=== PATIENT | female | born 1980 | race Caucasian/White ===

== ENCOUNTER 2018-11-19 22:56 | Inpatient (IN) | payer BC ==
[~2018-11-19] VITALS: Ht 152.4 cm; Wt 74.4 kg
[2018-11-19] MEDS ORDERED: TERBUTALINE SULFATE 1 MG/ML VIAL SUBCUT ONE (23:30)
[2018-11-19] MEDS ORDERED: DINOPROSTONE 10 MG SUPP VG ONE (23:30)
[2018-11-19] MEDS ORDERED: NALBUPHINE HCL 10 MG/ML AMP IM PRN (23:30)
[2018-11-20] MEDS ORDERED: ACETAMINOPHEN 325 MG TABLET PO PRN (00:15)
[2018-11-20 00:53] LABS: BASOPHILS # (AUTO) 0.1 K/uL (0.0-0.2); BASOPHILS % (AUTO) 1.1 % (0.0-2.0); EOSINOPHILS # (AUTO) 0.2 K/uL (0.0-0.4); EOSINOPHILS % (AUTO) 2.6 % (0.0-4.0); HEMATOCRIT 33.4 % (36-48); HEMOGLOBIN 11.4 g/dL (12.0-16.0); LYMPHOCYTES # (AUTO) 2.1 K/uL (1.0-5.5); MEAN CORPUSCULAR HEMOGLOBIN 32 pg (27-31); MEAN CORPUSCULAR HGB CONC 34 % (32-36); MEAN CORPUSCULAR VOLUME 95 fL (79.0-98.0); MONOCYTES # (AUTO) 0.7 K/uL (0.0-1.0); MONOCYTES % (AUTO) 8.6 % (1.7-9.3); NEUTROPHILS # (AUTO) 5.3 K/uL (1.8-7.7); NEUTROPHILS % (AUTO) 62.7 % (40.0-70.0); PLATELET COUNT (AUTO) 195 K/uL (130-430); RED BLOOD CELL COUNT(AUTO) 3.53 MIL/uL (4.2-6.2); RED CELL DISTRIBUTION WIDTH 14.1 % (9.0-15.0); WHITE BLOOD COUNT (AUTO) 8.4 K/uL (4.8-10.8)
[2018-11-20] MEDS: LR 1,000 ML IV SCH ×2 (00:53→21:50)
[2018-11-20 01:20] VITALS: BP_SYST 100
[2018-11-20] MEDS: FIORCET PO PRN ×3 (09:55→21:51)
[2018-11-20] MEDS ORDERED: CEFAZOLIN 2 GM IVPB PREMIX 50 ML IV ONE (18:00)
[2018-11-20] MEDS ORDERED: TEMAZEPAM 15 MG CAPSULE PO PRN (21:00)
[2018-11-20] MEDS ORDERED: CLINDAMYCIN 900 mg/50mL D5W 50 ML IV ONE (22:59)
[2018-11-20] MEDS ORDERED: NALOXONE HCL 0.4 MG/ML AMP (NARCAN) IVP PRN ×2 (23:30)
[2018-11-20] MEDS ORDERED: KETOROLAC TROMETHAMINE 60 MG/2 ML VIAL IM PRN (23:30)
[2018-11-20] MEDS ORDERED: DIPHENHYDRAMINE INJ 50 MG/ML VIAL IVP PRN (23:30)
[2018-11-20] MEDS ORDERED: ONDANSETRON HCL 4 MG/2 ML VIAL IVP PRN (23:30)
[2018-11-20] MEDS ORDERED: fentaNYL CITRATE/PF 100 MCG/2 ML AMP IVP PRN ×2 (23:30)
[2018-11-20] MEDS ORDERED: NALBUPHINE HCL 10 MG/ML AMP IVP PRN (23:30)
[2018-11-20] MEDS ORDERED: MORPHINE SULFATE 10MG/10ML PF AMP SP SCH (23:30)
[2018-11-20] MEDS ORDERED: LR 1,000 ML IV SCH (23:33)
[2018-11-20] MEDS ORDERED: OXYTOCIN/0.9 % SODIUM CHLORIDE 1,000 ML IV ONE (23:33)
[2018-11-20 23:38] VITALS: BP_SYST 91
[2018-11-20] MEDS ORDERED: BISACODYL 10 MG/SUPPOSITORY RC PRN (23:45)
[2018-11-20] MEDS ORDERED: LANOLIN 7 GM OINT. TP PRN (23:45)
[2018-11-20] MEDS ORDERED: DOCUSATE SODIUM 100 MG CAPSULE PO PRN (23:45)
[2018-11-20] MEDS ORDERED: RHO(D) IMMUNE GLOBULIN/MALTOSE 1500 UNITS/1.3 ML (WINHRO) IM PRN (23:45)
[2018-11-20] MEDS ORDERED: DIPH-TET-PERTUS Vaccine 0.5 ML VIAL (ADACEL) I.M. PRN (23:45)
[2018-11-20] MEDS ORDERED: MEASLES,MUMPS&RUBELLA VACC/PF 12500 UNIT/0.5 ML VIAL SUBQ PRN (23:45)
[2018-11-20] MEDS ORDERED: SENNOSIDES/DOCUSATE SODIUM 1 TAB TABLET(SENOKOT-S) PO PRN (23:45)
[2018-11-20] MEDS ORDERED: ANUSOL 1 EA SUPP.RECT (PREPARATION H) RC PRN (23:45)
[2018-11-21] MEDS ORDERED: METOCLOPRAMIDE HCL 10 MG/2 ML VIAL IVP ONE
[2018-11-21] MEDS ORDERED: CEFAZOLIN 1 GM IVPB PREMIX 50 ML IV SCH
[2018-11-21] MEDS ORDERED: METOCLOPRAMIDE HCL 10 MG/2 ML VIAL ONE (00:10)
[2018-11-21] MEDS ORDERED: METOCLOPRAMIDE HCL 10 MG/2 ML VIAL IVP SCH (00:46)
[2018-11-21] MEDS ORDERED: CLINDAMYCIN 900 MG in D5W 100 ML IV SCH (06:00)
[2018-11-21] MEDS ORDERED: CLINDAMYCIN 900 mg/50mL D5W 50 ML IV ONE (06:06)
[2018-11-21] MEDS: KETOROLAC TROMETHAMINE 30 MG VIAL IVP SCH ×2 (06:22→12:13)
[2018-11-21 07:19] LABS: BASOPHILS # (AUTO) 0.1 K/uL (0.0-0.2); BASOPHILS % (AUTO) 0.5 % (0.0-2.0); EOSINOPHILS % (AUTO) 0.1 % (0.0-4.0); HEMATOCRIT 31.2 % (36-48); HEMOGLOBIN 10.3 g/dL (12.0-16.0); LYMPHOCYTES % (AUTO) 7.7 % (20.5-51.5); MEAN CORPUSCULAR HEMOGLOBIN 32 pg (27-31); MEAN CORPUSCULAR HGB CONC 33 % (32-36); MEAN CORPUSCULAR VOLUME 96 fL (79.0-98.0); MONOCYTES # (AUTO) 0.9 K/uL (0.0-1.0); MONOCYTES % (AUTO) 7.2 % (1.7-9.3); NEUTROPHILS # (AUTO) 10.9 K/uL (1.8-7.7); NEUTROPHILS % (AUTO) 84.5 % (40.0-70.0); PLATELET COUNT (AUTO) 169 K/uL (130-430); RED BLOOD CELL COUNT(AUTO) 3.25 MIL/uL (4.2-6.2); RED CELL DISTRIBUTION WIDTH 14.4 % (9.0-15.0); WHITE BLOOD COUNT (AUTO) 12.9 K/uL (4.8-10.8)
[2018-11-21] MEDS: FIORCET PO PRN (19:57)
[2018-11-21] MEDS: SIMETHICONE 80 MG TAB.CHEW PO PRN (20:22)
[2018-11-21] MEDS ORDERED: ACETAMINOPHEN/CODEINE 300 MG-30 MG TABLET PO PRN (20:45)
[2018-11-22] MEDS: KETOROLAC TROMETHAMINE 30 MG VIAL IVP SCH
[2018-11-22] MEDS: SIMETHICONE 80 MG TAB.CHEW PO PRN ×4 (03:40→09:07)
[2018-11-22] MEDS ORDERED: IBUPROFEN 600 MG TABLET PO SCH (18:00)
== END 2018-11-22 12:30 | disposition home or self-care (01) | DRG 788 ==
LOC: SPU 22:56
PROVIDERS: ADMIT Specialist; ATTEND Specialist
PROC: 3E0P7VZ Introduction of Hormone into Female Reproductive, Via Natural or Artificial Opening (ICD-10-PCS; 2018-11-20)
PROC: 10D00Z1 Extraction of Products of Conception, Low, Open Approach (ICD-10-PCS; principal; 2018-11-20 21:30)
DX: O62.2 Other uterine inertia (principal); O69.1XX0 Labor and delivery complicated by cord around neck, with compression, not applicable or unspecified; O34.13 Maternal care for benign tumor of corpus uteri, third trimester; D25.9 Leiomyoma of uterus, unspecified; Z3A.41 41 weeks gestation of pregnancy; Z37.0 Single live birth; Z88.1 Allergy status to other antibiotic agents
CPT/HCPCS: 36415; 81002-TC; 85025; 86592; 86886; 86900; 86901; 94760; J0690; J1885; J2590; J2765; J3490; J7060; J7120